=== PATIENT | female | born 1935 | race Caucasian/White ===

== ENCOUNTER 2016-05-04 01:51 | Emergency (ER) | payer MEDICAID, MEDICARE ==
[2016-05-04] MEDS ORDERED: NS 1,000 ML IV ONE (02:16)
[2016-05-04 02:22] VITALS: BMI 36.1
[2016-05-04] MEDS ORDERED: ONDANSETRON HCL 4 MG/2 ML VIAL IV ONE (02:22)
[2016-05-04] MEDS ORDERED: MORPHINE 4 MG/ML INJECTION IV ONE ×2 (02:22→05:01)
--- NOTE | 2016-05-04 02:34 | EDPRACDOC ---
- General Information Chief Complaint: Abdominal Pain Stated Complaint: WEAKNESS, ABD PAIN Time Seen by Provider: 05/04/16 02:15 Information Source: Patient Mode Of Arrival: Shelter Home Medications: Home Medications Alprazolam [Xanax] 1 mg PO BID 12/27/15 Apixaban [Eliquis] 5 mg PO BID 12/27/15 Diltiazem HCl [Diltiazem 12Hr ER] 60 mg PO BID 12/27/15 Esomeprazole Mag Trihydrate [Nexium] 40 mg PO DAILY 12/27/15 Fluticasone Propionate [Flonase] 2 spray ESTEVAN DAILY 12/27/15 Metoprolol Tartrate 12.5 mg PO DAILY 12/27/15 Nystatin 20 ml PO DAILY 12/27/15 Potassium Chloride [Klor-Con M10] 10 meq PO DAILY 12/27/15 Venlafaxine HCl [Effexor Xr] 75 mg PO DAILY 12/27/15 Cefdinir [Omnicef] 300 mg PO BID #14 capsule 12/30/15 Levofloxacin [Levaquin] 750 mg PO DAILY #3 tablet 12/30/15 Levothyroxine [Synthroid, Levoxyl] 100 mcg PO 0600 #30 tablet 12/30/15 Probiotic Blend [Ave Q] 1 tab PO BIDLS #20 tablet 12/30/15 Ondansetron [Zofran Odt] 4 mg PO Q6H PRN #10 tab.rapdis 05/04/16 Oxycodone HCl [Roxicodone] 5 mg PO Q6H #15 tablet 05/04/16 Allergies/Adverse Reactions: Allergies Allergy/AdvReac Type Severity Reaction Status Date / Time No Known Allergies Allergy Verified 12/27/15 20:07 - History of Present Illness Onset: HPI: PT SAID THAT SHE HAS HAD ABD PAIN FOR THE PAST FEW DAYS. SHE WAS SEEN AT [facility] ON WEDNESDAY (04/30). IT SOUNDS LIKE SHE HAD LABS AND A CT SCAN THAT WERE NEGATIVE. PT CONTINUES TO HAVE RIGHT FLANK PAIN WITH N/V. 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), Hypercholesterolemia GI/ History: Reports: Gastroesophageal Reflux Psychological History: Denies: Depression Systemic History: Reports: Hypothyroidism Surgical History: Reports: Cholecystectomy, Hysterectomy, Hernia Surgery, Other (GASTRIC FUNDIPLICATION) - Family Medical History Reports: Hypertension, Cancer (mother rectal), Cardiac Disorders - Social Medical History Smoking Status: Light tobacco smoker (less than 5/day) ETOH: None Substance Abuse: None Lives In: Home EDM Review of Systems - Review of Systems ROS Negative Except as Marked: Yes All systems reviewed and were negative except as marked Gastrointestinal: Nausea, Pain, Vomiting - Physical Exam Constitutional: Alert (Awake), No apparent distress Oriented to: Time, Person, Place Last recorded Vital Signs: Last Vital Signs Temp 98.6 F 05/04/16 02:16 Pulse 80 05/04/16 05:15 Resp 18 05/04/16 05:15 BP 124/59 L 05/04/16 05:15 Pulse Ox 94 05/04/16 05:15 Oxygen Pulse Oxygen Saturation 94 O2 Device Oxygen Flow Rate Fraction of Inspired Oxygen ( FIO2) - HEENT Head: Normal ( normocephalic) Eye Exam: Normal (PERRL, EOMI, Sclera white) Oropharynx: Normal (Pharynx:Moist without exudate,Gums-no swelling) ENT EAC: Normal TMJ: Normal Nose: No Symptoms Reported (septum midline) Neck: Normal (FROM, trachea at midline) - Respiratory/Cardiovascular Respiratory: Normal - CTA (BBS clear to auscultation without adventitious sounds ) Cardiovascular: Normal (RRR without murmur, gallop or rub) - GI Auscultation: Normal (NABS) Palpation: Normal (Soft,No rebound or guarding, non distended) Tenderness: Moderate, RUQ, Epigastric Hand's Sign: Negative - Musculoskeletal Back: Normal (Non-Tender) Extremities: Normal (Normal tone, Pulses 2+ No cyanosis or edema, FROM) - Integumentary Skin: Normal, Warm, Dry Lymphatics: Normal (no adenopathy) - Neurologic Memory Impaired: Normal Motor Function: Normal (Normal tone, Pulses 2+ No cyanosis or edema, FROM) Cranial Nerve: Normal (CN II-X11 intact sensation, strength 5/5) Cerebellar: Normal Mood Description: Normal Thought: Coherent Perception: Normal - Re-evaluation Re-evaluation 1 Re-evaluation Time: 06:19 (FEELING MUCH BETTER) - Results 05/04/16 02:38 05/04/16 02:38 WBC 12.1 xk/uL (3.8-10.8) H 05/04/16 02:38 RBC 4.24 xM/uL (4.20-5.40) 05/04/16 02:38 Hgb 13.2 g/dL (12.0-16.0) 05/04/16 02:38 Hct 39.9 % (36-47) 05/04/16 02:38 MCV 94 fL (81-99) 05/04/16 02:38 MCH 31.2 pg (27-32) 05/04/16 02:38 MCHC 33.2 g/dl (33-36) 05/04/16 02:38 RDW 13.8 % (11.5-14.5) 05/04/16 02:38 Plt Count 187 xk/uL (130-400) 05/04/16 02:38 MPV 9.7 fL (7.4-10.4) 05/04/16 02:38 Neut % (Auto) 56.5 % (45-76) 05/04/16 02:38 Lymph % (Auto) 32.3 % (17-44) 05/04/16 02:38 [place] % (Auto) 9.2 % (3-10) 05/04/16 02:38 Eos % (Auto) 1.1 % (0-5) 05/04/16 02:38 Baso % (Auto) 0.9 % (0-2) 05/04/16 02:38 Absolute Neuts (auto) 6.78 xk/uL (1.7-8.2) 05/04/16 02:38 Absolute Lymphs (auto) 3.87 xk/uL (0.65-4.75) 05/04/16 02:38 PT 10.8 SEC (9.2-11.2) 05/04/16 02:38 INR 1.1 05/04/16 02:38 APTT 25.7 SEC (22-35) 05/04/16 02:38 Sodium 140 mEq/L (137-146) 05/04/16 02:38 Potassium 4.0 mEq/L (3.5-5.1) 05/04/16 02:38 Chloride 106 mEq/L (98-107) 05/04/16 02:38 Carbon Dioxide 26 mMOL/L (22-33) 05/04/16 02:38 Anion Gap 12 mEq/L (8-16) 05/04/16 02:38 BUN 32 MG/DL (7-17) H 05/04/16 02:38 Creatinine 1.10 MG/DL (0.52-1.04) H 05/04/16 02:38 Estimated GFR (MDRD) 48 mL/min (>=60) L 05/04/16 02:38 Glucose 115 MG/DL (70-99) H 05/04/16 02:38 Calculated Osmolality 277 MOs/Kg (270-290) 05/04/16 02:38 Calcium 8.5 MG/DL (8.4-10.2) 05/04/16 02:38 Corrected Calcium 9.2 MG/DL (8.4-10.2) 05/04/16 02:38 Total Bilirubin 0.3 MG/DL (0.2-1.3) 05/04/16 02:38 AST 32 IU/L (14-36) 05/04/16 02:38 ALT 49 IU/L (9-52) 05/04/16 02:38 Alkaline Phosphatase 105 IU/L (55-165) 05/04/16 02:38 Troponin I < 0.01 ng/mL (<.04) 05/04/16 05:14 Total Protein 6.5 G/DL (6.3-8.2) 05/04/16 02:38 Albumin 3.3 G/DL (3.5-5.0) L 05/04/16 02:38 Lipase 112 U/L (23-300) 05/04/16 02:50 Urine Color Yellow 05/04/16 04:30 Urine Clarity Sl cldy 05/04/16 04:30 Urine pH 5.0 (5.0-8.0) 05/04/16 04:30 Ur Specific [place] 1.015 (1.003-1.035) 05/04/16 04:30 Urine Protein Neg (NEG/TRACE) 05/04/16 04:30 Urine Glucose (UA) Neg (NEGATIVE) 05/04/16 04:30 Urine Ketones Neg (NEGATIVE) 05/04/16 04:30 Urine Occult Blood Neg (NEG/TRACE) 05/04/16 04:30 Urine Nitrite Neg (NEGATIVE) 05/04/16 04:30 Urine Bilirubin Neg (NEGATIVE) 05/04/16 04:30 Urine Urobilinogen <2.0 MG/DL (0-1) 05/04/16 04:30 Ur Leukocyte Esterase Neg (NEGATIVE) 05/04/16 04:30 Urine RBC 0-2 (0-5) 05/04/16 04:30 Urine WBC 10-20 (0-5) H 05/04/16 04:30 Ur Epithelial Cells 2+ 05/04/16 04:30 Urine Bacteria 4+ (NEG/FEW) H 05/04/16 04:30 Hyaline Casts 5-10 (0-2) H 05/04/16 04:30 Urine Mucus Sm amt (NEG/OCC) 05/04/16 04:30 Lab Results 05/04/16 05/04/16 05/04/16 05:14 04:30 02:50 WBC RBC Hgb Hct MCV MCH MCHC RDW Plt Count MPV Neut % (Auto) Lymph % (Auto) [place] % (Auto) Eos % (Auto) Baso % (Auto) Absolute Neuts (auto) Absolute Lymphs (auto) PT INR APTT Sodium Potassium Chloride Carbon Dioxide Anion Gap BUN Creatinine Estimated GFR (MDRD) Glucose Calculated Osmolality Calcium Corrected Calcium Total Bilirubin AST ALT Alkaline Phosphatase Troponin I < 0.01 Total Protein Albumin Lipase 112 Urine Color Yellow Urine Clarity Sl cldy Urine pH 5.0 Ur Specific [place] 1.015 Urine Protein Neg Urine Glucose (UA) Neg Urine Ketones Neg Urine Occult Blood Neg Urine Nitrite Neg Urine Bilirubin Neg Urine Urobilinogen <2.0 Ur Leukocyte Esterase Neg Urine RBC 0-2 Urine WBC 10-20 H Ur Epithelial Cells 2+ Urine Bacteria 4+ H Hyaline Casts 5-10 H Urine Mucus Sm amt 05/04/16 05/04/16 05/04/16 02:38 02:38 02:38 WBC 12.1 H RBC 4.24 Hgb 13.2 Hct 39.9 MCV 94 MCH 31.2 MCHC 33.2 RDW 13.8 Plt Count 187 MPV 9.7 Neut % (Auto) 56.5 Lymph % (Auto) 32.3 [place] % (Auto) 9.2 Eos % (Auto) 1.1 Baso % (Auto) 0.9 Absolute Neuts (auto) 6.78 Absolute Lymphs (auto) 3.87 PT 10.8 INR 1.1 APTT 25.7 Sodium 140 Potassium 4.0 Chloride 106 Carbon Dioxide 26 Anion Gap 12 BUN 32 H Creatinine 1.10 H Estimated GFR (MDRD) 48 L Glucose 115 H Calculated Osmolality 277 Calcium 8.5 Corrected Calcium 9.2 Total Bilirubin 0.3 AST 32 ALT 49 Alkaline Phosphatase 105 Troponin I < 0.01 Total Protein 6.5 Albumin 3.3 L Lipase Urine Color Urine Clarity Urine pH Ur Specific [place] Urine Protein Urine Glucose (UA) Urine Ketones Urine Occult Blood Urine Nitrite Urine Bilirubin Urine Urobilinogen Ur Leukocyte Esterase Urine RBC Urine WBC Ur Epithelial Cells Urine Bacteria Hyaline Casts Urine Mucus - EKG EKG #1 EKG Time: 03:03 -: Yes EKG interpreted by me Rate: bpm: 66 [place]: Normal Rhythm: NSR Block: None Hypertrophy: None ST: Normal - Diagnostic Imaging Chest Image interpreted by: Radiologist 05/04/16 03:35 Hypoventilatory portable chest with vascular congestion versus bronchovascular crowding and enlargement of the cardiac silhouette from prior exam. Recommend dedicated PA and lateral views for further assessment. Abdomen Image interpreted by: Radiologist 05/04/16 06:16 1. Mild intrahepatic bile duct enlargement after cholecystectomy, usually incidental but new from 2016. Please correlate with liver function tests. 2. Otherwise stable exam with no explanation for pain. - Additional Information PT'S RECORDS FROM [facility] REVIEWED. NL CT ABD/PELVIS WITH CONTRAST. PT JUST HAD A NL CT, BUT PT SAID THAT HER PAIN IS SEVERE THAT SHE WANTS ANOTHER ONE. SHE SAID "SOMETHING IS WRONG." Decision Time to Discharge: 06:19 - Departure Yes I personally saw and evaluated the patient. Disposition: Home Condition: Fair Final Diagnosis: Abdominal pain Instructions: Abdominal Pain in Women Education/Counseling Given To: Patient, Family Member Education/Counseling Given Regarding: Diagnosis, Treatment, Follow Up Referrals: Earl Potter MD [Primary Care Provider] - One Week Richard Araiza MD [Staff Physician] - One Week Prescriptions: New Ondansetron [Zofran Odt] 4 mg PO Q6H PRN #10 tab.rapdis PRN Reason: Nausea/Vomiting Oxycodone HCl [Roxicodone] 5 mg PO Q6H #15 tablet No Action Metoprolol Tartrate 12.5 mg PO DAILY Apixaban [Eliquis] 5 mg PO BID Fluticasone Propionate [Flonase] 2 spray ESTEVAN DAILY Diltiazem HCl [Diltiazem 12Hr ER] 60 mg PO BID Venlafaxine HCl [Effexor Xr] 75 mg PO DAILY Potassium Chloride [Klor-Con M10] 10 meq PO DAILY Alprazolam [Xanax] 1 mg PO BID Esomeprazole Mag Trihydrate [Nexium] 40 mg PO DAILY Nystatin 20 ml PO DAILY Cefdinir [Omnicef] 300 mg PO BID #14 capsule Levofloxacin [Levaquin] 750 mg PO DAILY #3 tablet Levothyroxine [Synthroid, Levoxyl] 100 mcg PO 0600 #30 tablet Probiotic Blend [Ave Q] 1 tab PO BIDLS #20 tablet
[2016-05-04 02:47] LABS: AUTOMATED BASOPHIL 0.9 % (0-2); AUTOMATED EOSINOPHIL 1.1 % (0-5); AUTOMATED LYMPH 32.3 % (17-44); AUTOMATED MONOCYTE 9.2 % (3-10); AUTOMATED NEUTROPHIL 56.5 % (45-76); MPV 9.7 fL (7.4-10.4)
[2016-05-04 02:57] LABS: BLOOD UREA NITROGEN 32 MG/DL (7-17); CALC CORRECTED 9.2 MG/DL (8.4-10.2); CALCIUM 8.5 MG/DL (8.4-10.2); CALCULATED OSMOLALITY 277 MOs/Kg (270-290); CHLORIDE 106 mEq/L (98-107); GLUCOSE 115 MG/DL (70-99); SODIUM LEVEL 140 mEq/L (137-146); TOTAL PROTEIN 6.5 G/DL (6.3-8.2)
[2016-05-04 02:59] LABS: PARTIAL THROMB. TIME 25.7 SEC (22-35); PT-INR 1.1
--- NOTE | 2016-05-04 03:34 | DIRPT ---
CLINICAL DATA: Upper abdominal pain this evening. EXAM: PORTABLE CHEST 1 VIEW COMPARISON: Frontal and lateral views 12/29/2015 FINDINGS: Lower lung volumes leading to crowding of bronchovascular structures. Questionable vascular congestion versus bronchovascular crowding. Enlargement of the cardiac silhouette, cardiomegaly versus accentuated by technique. No confluent airspace disease, suspect bibasilar atelectasis. No pneumothorax. Limited assessment for pleural effusion due to soft tissue attenuation. IMPRESSION: Hypoventilatory portable chest with vascular congestion versus bronchovascular crowding and enlargement of the cardiac silhouette from prior exam. Recommend dedicated PA and lateral views for further assessment. Electronically Signed By: Jamia Patel M.D. On: 05/04/2016 03:32
[2016-05-04] MEDS ORDERED: GI COCKTAIL 30 ML DOSE PO ONE (03:37)
[2016-05-04 04:51] LABS: LEUKOCYTES/URINE NEG (NEGATIVE); NITRITE/URINE NEG (NEGATIVE); RBC/URINE 0-2 (0-5); URINE OCCULT BLOOD NEG (NEG/TRACE)
[2016-05-04] MEDS ORDERED: Pharmacy Review for Metformin - IV Contrast Given SCH (06:00)
--- NOTE | 2016-05-04 06:13 | DIRPT ---
CLINICAL DATA: Upper abdominal pain radiating to the right flank for 4 days. EXAM: CT ABDOMEN AND PELVIS WITH CONTRAST TECHNIQUE: Multidetector CT imaging of the abdomen and pelvis was performed using the standard protocol following bolus administration of intravenous contrast. CONTRAST: 80 cc Isovue 370 intravenous COMPARISON: 12/27/2015 FINDINGS: Lower chest and abdominal wall: No contributory findings. Hepatobiliary: No focal liver abnormality.Cholecystectomy with mild intrahepatic bile duct prominence that is new from 2016. The common bile duct has normal diameter and there is no calcified choledocholithiasis. Pancreas: Atrophy without duct enlargement Spleen: Unremarkable. Adrenals/Urinary Tract: Negative adrenals. No hydronephrosis or stone. 1 cm left renal cyst. Unremarkable bladder. Reproductive:Hysterectomy. Stable adnexa including small benign-appearing right-sided cyst. Stomach/Bowel: Mone fundoplication which appears intact. Colonic diverticulosis, advanced at the sigmoid. Uncomplicated mid duodenal diverticulum. No appendicitis. Vascular/Lymphatic: Diffuse aortic and branch vessel atherosclerosis. No acute vascular abnormality. No mass or adenopathy. Peritoneal: No ascites or pneumoperitoneum. Musculoskeletal: No acute abnormalities. Usual disc and facet degeneration with L5-S1 central and left paracentral disc herniations outlined by vacuum phenomenon. IMPRESSION: 1. Mild intrahepatic bile duct enlargement after cholecystectomy, usually incidental but new from 2016. Please correlate with liver function tests. 2. Otherwise stable exam with no explanation for pain. Electronically Signed By: Sin Akhtar M.D. On: 05/04/2016 06:10
[2016-05-04 07:27] VITALS: BP 124/70; PULSE 88; TEMP 98
== END 2016-05-04 07:25 | disposition home or self-care (01) ==
LOC: ED 01:51
DX: R10.9 Unspecified abdominal pain (principal)
CPT/HCPCS: 36415; 71010; 74177; 80053; 81001; 83690; 84484; 85025; 85610; 85730; 87077; 87086; 87186; 93005; 96361; 96374; 96375; 96376; 99284; A9270; A9698; J2270; J2405; J3490